=== PATIENT | female | born 1995 | race Caucasian/White ===

== ENCOUNTER 2020-01-02 20:37 | Emergency (ER) | payer MEDICAID ==
[~2020-01-02] VITALS: Ht 157.5 cm; Wt 72.7 kg
[2020-01-02 21:03] VITALS: Ht 157.5 cm; Wt 72.7 kg
[2020-01-02 22:38] LABS: BASOPHILS 0.6 % (0-2); EOSINOPHILS 2.1 % (0-7); HEMATOCRIT 37.2 % (36.0-48.0); HEMOGLOBIN 12.7 g/dL (12-16); IMMATURE GRANULOCYTES 0.2 % (0-5); LYMPHOCYTES 36.9 % (15-50); MCH 30.8 pg (26.0-34.0); MCHC 34.1 g/dL (31.0-37.0); MCV 90.3 fL (80.0-100.0); MEAN PLATELET VOLUME 8.7 fL (7.4-10.4); MONOCYTES 9.6 % (2-11); NEUTROPHILS 50.6 % (40-80); PLATELET COUNT 350 10x3/uL (130-400); RBC 4.12 10x6/uL (4.00-5.40); RDW 12.4 % (11.5-14.5); WBC 8.2 10x3/uL (4.8-10.8)
[2020-01-02 22:51] LABS: CALC OSMOLALITY 270 mosm/kg (275-300); CALCIUM 8.8 mg/dL (8.5-10.1); CARBON DIOXIDE 27.3 mmol/L (21.0-32.0); CHLORIDE - SERUM 103 mmol/L (98-107); CREATININE - SERUM 0.6 mg/dL (0.6-1.3); GLUCOSE 94 mg/dL (74-106); POTASSIUM - SERUM 3.9 mmol/L (3.5-5.1); SODIUM 136 mmol/L (136-145); UREA NITROGEN 9 mg/dL (7-18); eGFR NON AFRICAN AMERICAN > 90 mL/min (90-120)
[2020-01-02 22:57] LABS: ALBUMIN 4.1 g/dL (3.4-5.0); ALKALINE PHOSPHATASE 75 U/L (30-120); ALT (SGPT) 21 U/L (10-68); BILIRUBIN - TOTAL 0.29 mg/dL (0.2-1.3); HCG SERUM NEGATIVE (NEGATIVE); LIPASE 106 U/L (73-393); PROTEIN - SERUM 7.9 g/dL (6.4-8.2)
[2020-01-03 00:15] LABS: BILIRUBIN NEGATIVE (NEGATIVE); KETONE NEGATIVE (NEGATIVE); NITRITE NEGATIVE (NEGATIVE); UROBILINOGEN NORMAL (NORMAL)
[2020-01-03 00:22] LABS: BACTERIA FEW /hpf (NEGATIVE); EPITHELIAL CELLS 0-5 /hpf (0-5); RED CELLS - URINE 0-5 /hpf (0-5); WHITE CELLS - URINE 0-5 /hpf (NEGATIVE)
[2020-01-03] MEDS ORDERED: KEFLEX500 MG PO (00:33)
[2020-01-03 00:54] VITALS: BP 140/91
== END 2020-01-03 00:54 | disposition home or self-care (01) ==
LOC: D.ER 20:37
PROVIDERS: Family Medicine
DX: N76.0 Acute vaginitis (principal); R51 Headache; R11.0 Nausea; R10.30 Lower abdominal pain, unspecified